=== PATIENT | female | born 1985 | race Caucasian/White ===

== ENCOUNTER 2022-06-11 09:05 | Outpatient (CLI) | payer OTHER, SELFPAY | END 2022-06-11 09:06 | disposition home or self-care (01) | LOC: NFLDREF 09:06 | PROVIDERS: Visit Provider Registered Nurse | DX: R35.0 Frequency of micturition (principal) | CPT/HCPCS: 87086 ==

== ENCOUNTER 2022-06-18 08:20 | Outpatient (CLI) | payer OTHER, SELFPAY | END 2022-06-18 08:21 | disposition home or self-care (01) | PROVIDERS: Visit Provider Registered Nurse | DX: R61 Generalized hyperhidrosis (principal) | CPT/HCPCS: 84443 ==

== ENCOUNTER 2023-04-28 08:59 | Outpatient (CLI) | payer OTHER, SELFPAY | END 2023-04-28 09:00 | disposition home or self-care (01) | LOC: NFLDREF 04-30 06:09 | PROVIDERS: PCP Family Medicine; Referring Provider Family Medicine; Visit Provider Nurse Practitioner | DX: R30.0 Dysuria (principal); R10.9 Unspecified abdominal pain; N30.00 Acute cystitis without hematuria; K59.00 Constipation, unspecified | CPT/HCPCS: 87086 ==

== ENCOUNTER 2023-09-03 08:53 | Emergency (ER) | payer OTHER, SELFPAY ==
[2023-09-03 08:59] VITALS: BP 134/86; PULSE 79; RESP 18; TEMP 36.3; O2SAT 98; BMI 32.1
--- NOTE | 2023-09-03 09:18 | XR_ITS ---
Patient: FELISHA EMERSON Facility:?[facility] Patient ID:?[id number] Site Patient ID:?[id number]. Site :?[id number] Study:?XRay-Chest Portable-09/03/2023 9:33:05 AM Ordering Physician:?Austen Parra Final Report: INDICATION: Palpitations TECHNIQUE: Chest 1 view COMPARISON: None FINDINGS: Cardiovascular and mediastinum: Heart size and vasculature are normal in caliber and appearance. Lungs and pleural spaces: Lungs are clear. No sign of infiltrate or mass. No sign of pleural effusion. No pneumothorax. Bones and soft tissues: No significant findings. IMPRESSION: No acute findings. Dictated by Eduardo Guido MD @ 09/03/2023 10:52:18 AM Signed by:?Eduardo Guido MD @09/03/2023 10:52:18 AM (Electronic Signature)
[2023-09-03 09:42] LABS: Basophils Absolute Auto 0.03 K/uL (0.00-0.30); Basophils Percent Auto 0.5 % (0.0-3.0); Eosinophils Absolute Auto 0.09 K/uL (0.00-0.50); Eosinophils Percent Auto 1.5 % (0.0-7.0); Hematocrit 37.1 % (33.0-51.0); Hemoglobin* 12.4 gm/dL (12.0-16.0); Immature Granulocytes Abs Auto 0.01 K/uL (0.00-0.30); Immature Granulocytes Pct Auto 0.2 %; Lymphocytes Absolute Auto 1.31 K/uL (0.90-2.90); Mean Corpuscular HGB Conc 33 gm/dL (32-36); Mean Corpuscular Hemoglobin 29 pg (26-34); Mean Corpuscular Volume 87 fL (80-100); Monocytes Percent Auto 4.9 % (0.0-11.0); Neutrophils Absolute Auto 4.22 K/uL (1.7-7.0); Neutrophils Percent Auto 70.9 % (42.0-72.0); Platelet Count* 176 K/uL (140-440); Red Blood Count 4.26 m/uL (4.00-5.20); White Blood Count* 5.95 K/uL (4.50-11.00)
[2023-09-03 09:44] LABS: Slide Review Reflex No
[2023-09-03 09:55] LABS: Chloride* 112 mmol/L (96-114)
[2023-09-03 09:56] LABS: Potassium* 4.5 mmol/L (3.6-5.1); Sodium* 139 mmol/L (135-149)
[2023-09-03 09:58] LABS: Creatinine* 0.6 mg/dL (0.5-1.5); Est. Creatinine Clearance* 96.87; Estimated Glomerular Filt Rate 118 ml/min
[2023-09-03 09:59] LABS: Anion Gap 1 mEq/L (7-15); Blood Urea Nitrogen* 14 mg/dL (5-24); Calcium* 9.1 mg/dL (8.4-10.6); Carbon Dioxide* 26 mmol/L (20-32); Glucose* 100 mg/dL (60-115)
[2023-09-03 10:12] LABS: Troponin I* < 0.01 ng/mL (0.01-0.04)
[2023-09-03 10:26] LABS: D Dimer Quantitative* 0.22 ug/ml (0.00-0.50)
--- NOTE | 2023-09-03 10:28 | ED_ITS ---
HPI - Arrhythmia/Palpitations General Chief Complaint: Arrhythmia/Palpitations Stated Complaint: Heart palpitations, L arm tingling, dizzy Time Seen by Provider: 09/03/23 09:13 History of Present Illness HPI narrative: Patient is a 38-year-old woman who presents with palpitations that started last night. She feels irregular heartbeat most of the time now. She feels it today we did our EKG which showed no acute abnormalities with a normal sinus rhythm. Patient had a procedure yesterday and did receive lidocaine and blood cells epinephrine into the soft tissue of her gums. Patient has no history of cardiovascular disease she takes only sertraline. She has had no chest pain no shortness a breath orthopnea no PND no nausea no vomiting. She has had no similar symptoms previously. Related Data Home Medications Medication Instructions Recorded Confirmed sertraline 100 mg tablet 100 mg PO QDAY 06/11/22 04/28/23 Allergies Allergy/AdvReac Type Severity Reaction Status Date / Time bee venom protein (honey bee) Allergy Mild Unknown Verified 12/30/22 13:46 influenza virus vaccine, Allergy Mild Unknown Verified 12/30/22 13:46 specific Review of Systems Status of ROS: Reports: 10 or more systems reviewed and unremarkable except as noted in History and below [facility] Medical History Sore throat ?J02.9 - Acute pharyngitis, unspecified (ICD-10) Migraine without aura ?G43.009 - Migraine without aura, not intractable, without status migrainosus (ICD-10) Anemia ?D64.9 - Anemia, unspecified (ICD-10) Anxiety and depression ?F41.9 - Anxiety disorder, unspecified (ICD-10) ?F32.A - Depression, unspecified (ICD-10) Surgical History [place] teeth extracted ?K08.409 - Partial loss of teeth, unspecified cause, unspecified class (ICD- 10) Family History Other FH: mental illness Social History Smoking Status: Never smoker Second hand tobacco smoke exposure: No How often do you have a drink containing alcohol: monthly or less How often do you have six or more drinks on one occasion: Less than monthly AUDIT-C Alcohol total score: 2 Non-prescribed substance use: denies use service: No Exam Narrative: Exam Narrative: EXAM GENERAL: Patient appears comfortable and well. EYES: No scleral icterus. LYMPH: No supraclavicular or cervical lymphadenopathy. SKIN: Visible skin seen during exam normal or with benign process only. EXT: No dependent lower extremity pedal edema. HEART: Regular rate and rhythm with no murmurs, rubs, or gallops. LUNGS: Clear to auscultation bilaterally with no crackles or wheezes. ABD: Soft, non tender, non distended. PSYCH: Good eye contact, speech is not pressured. Neurologic cranial nerves 2-12 grossly intact no focal defects. Const: Vital Signs, click to edit/add: Vital Signs - 24 hr 09/03/23 08:59 Temperature 97.4 F L Pulse Rate [Left P ulse Oximeter] 79 Respiratory Rate 18 Blood Pressure [Le ft Upper Arm] 134/86 Pulse Oximetry 98 Oxygen Delivery Me thod Room Air Course Course ED Course: Patient seen examined. Workup ordered. EKG personally reviewed by me. Vital Signs Vital signs: Initial Vital Signs Temperature 97.4 F L 09/03/23 08:59 Temperature Source Temporal Artery Scan 09/03/23 08:59 Pulse Rate 79 09/03/23 08:59 Pulse Rhythm Regular 09/03/23 08:59 Pulse Strength 3+ Normal 09/03/23 08:59 Respiratory Rate 18 09/03/23 08:59 Blood Pressure 134/86 09/03/23 08:59 Blood Pressure Mean 102 09/03/23 08:59 Blood Pressure Position Sitting 09/03/23 08:59 Pulse Oximetry 98 09/03/23 08:59 Oxygen Delivery Method Room Air 09/03/23 08:59 Vital Signs Temperature 97.4 F L 09/03/23 08:59 Pulse Rate 79 09/03/23 08:59 Respiratory Rate 18 09/03/23 08:59 Blood Pressure 134/86 09/03/23 08:59 Pulse Oximetry 98 09/03/23 08:59 Oxygen Delivery Method Room Air 09/03/23 08:59 Temperature 97.4 F L 09/03/23 08:59 Pulse Rate 79 09/03/23 08:59 Respiratory Rate 18 09/03/23 08:59 Blood Pressure 134/86 09/03/23 08:59 Pulse Oximetry 98 09/03/23 08:59 Oxygen Delivery Method Room Air 09/03/23 08:59 MDM - Arrhythmia/Palpitations MDM Narrative Medical decision making narrative: Patient is a 38-year-old woman who has no history of cardiovascular disease who is in today with palpitations 1 day following dental procedure. Workup is unremarkable with a negative D-dimer negative EKG negative troponin negative cbc dairy comprehensive metabolic panel. We did watch her on telemetry during her time here in she showed no signs of ectopy. At this time reassurance is offered. Differential diagnosis includes but not limited to atrial fibrillation atrial flutter ventricular tachycardia junctional rhythm PVCs SVT acute myocardial infarction D-dimer. Lab Data Labs: Lab Results 09/03/23 Range/Units 09:33 WBC 5.95 (4.50-11.00) K/uL RBC 4.26 (4.00-5.20) m/uL Hgb 12.4 (12.0-16.0) gm/dL Hct 37.1 (33.0-51.0) % MCV 87 (80-100) fL MCH 29 (26-34) pg MCHC 33 (32-36) gm/dL RDW Coeff of Jeff 12.0 (11.5-15.5) % Plt Count 176 (140-440) K/uL Neut % (Auto) 70.9 (42.0-72.0) % Lymph % (Auto) 22.0 (20-44) % [place] % (Auto) 4.9 (0.0-11.0) % Eos % (Auto) 1.5 (0.0-7.0) % Baso % (Auto) 0.5 (0.0-3.0) % Neut # (Auto) 4.22 (1.7-7.0) K/uL Lymph # (Auto) 1.31 (0.90-2.90) K/uL [place] # (Auto) 0.30 (0.00-0.90) K/UL Eos # (Auto) 0.09 (0.00-0.50) K/uL Baso # (Auto) 0.03 (0.00-0.30) K/uL Abs Immat Gran (auto) 0.01 (0.00-0.30) K/uL Imm/Tot Granulo (auto) 0.2 % D-Dimer Quant (PE/DVT) 0.22 (0.00-0.50) ug/ml Sodium 139 (135-149) mmol/L Potassium 4.5 (3.6-5.1) mmol/L Chloride 112 (96-114) mmol/L Carbon Dioxide 26 (20-32) mmol/L Anion Gap 1 L (7-15) mEq/L BUN 14 (5-24) mg/dL Creatinine 0.6 (0.5-1.5) mg/dL Estimated Creat Clear 96.87 Estimated GFR 118 ml/min Glucose 100 (60-115) mg/dL Calcium 9.1 (8.4-10.6) mg/dL Troponin I < 0.01 L (0.01-0.04) ng/mL Discharge Plan Discharge Clinical Impression: Palpitations Condition: Stable Instructions: Heart Palpitations (ED) Additional Instructions: Continue current medication Monitor symptoms Follow-up with your doctor if symptoms persist. Activity Level: No Restrictions Discharge Diet: Regular Prescriptions: No Action sertraline 100 mg tablet 100 mg PO QDAY Follow Up/Referrals: Modesta Martinez MD [Primary Care Provider] - Stand Alone Forms: [place] Info Instructions
== END 2023-09-03 10:36 | disposition home or self-care (01) ==
PROVIDERS: Emergency Provider Internal Medicine; PCP Family Medicine
DX: R00.2 Palpitations (principal)
CPT/HCPCS: 36415; 71045; 80048; 84484; 85025; 85379; 99283; 99284